=== PATIENT | female | born 1975 | race Caucasian/White ===

== ENCOUNTER 2017-09-03 23:27 | Emergency (ER) | payer BC, OTHER ==
[2017-09-04] MEDS ORDERED: Azithromycin 250 MG TAB ONE (00:17)
[2017-09-04] MEDS ORDERED: Benzonatate 100 MG CAP ONE (00:17)
== END 2017-09-04 00:20 | disposition home or self-care (01) ==
LOC: BURERS 23:27
DX: J20.9 Acute bronchitis, unspecified (principal)
CPT/HCPCS: 99283